=== PATIENT | female | born 1990 | race Caucasian/White ===

== ENCOUNTER 2021-06-13 07:54 | Outpatient (CLI) | payer BC ==
[2021-06-13 23:15] LABS: SARS-CoV-2 PCR by NAA Not Detected (NotDetected)
== END 2021-06-13 07:55 | disposition home or self-care (01) ==
LOC: CSHLAB 07:54
PROVIDERS: ATTEND Student in an Organized Health Care Education/Training Program
DX: Z01.812 Encounter for preprocedural laboratory examination (principal); Z20.822 Contact with and (suspected) exposure to COVID-19
CPT/HCPCS: U0003; U0005

== ENCOUNTER 2021-06-14 23:42 | Inpatient (IN) | payer BC ==
[2021-06-15 00:12] VITALS: BMI 26.2
[2021-06-15] MEDS ORDERED: Promethazine HCl 25 MG/ML VIAL IM PRN ×2 (01:09→03:00)
[2021-06-15] MEDS ORDERED: Misoprostol 200 MCG TAB PR PRN (01:09)
[2021-06-15] MEDS ORDERED: Ibuprofen 800 MG TAB PO PRN (01:09)
[2021-06-15] MEDS ORDERED: hydrALAZINE 20 MG/ML VIAL SLOW IVP PRN ×2 (01:09→08:04)
[2021-06-15] MEDS ORDERED: Butorphanol Tartrate 1 MG/ML VIAL SLOW IVP PRN (01:09)
[2021-06-15] MEDS ORDERED: Acetaminophen 500 MG TAB PO PRN (01:09)
[2021-06-15] MEDS ORDERED: Ondansetron PF 4 MG/2 ML Vial IVP PRN ×3 (01:09→08:04)
[2021-06-15] MEDS ORDERED: Lidocaine 1% (PF) 30 ML VIAL SC PRN (01:09)
[2021-06-15] MEDS ORDERED: NS w/ Oxytocin 30 units 500 ML IV SCH ×2 (01:15→08:04)
[2021-06-15] MEDS ORDERED: Lactated Ringer's 1,000 ML IV SCH (01:15)
[2021-06-15 01:22] LABS: Hemoglobin 12.1 g/dL (12.0-15.5); Mean Corpuscular HGB CONC 33.6 g/dL (32.0-36.0); Mean Corpuscular Volume 89.3 fl (81.6-98.3); Platelet Count 191 10x3/uL (150-450); RBC Distribution Width 14.8 % (11.5-14.5); Red Blood Cell (RBC) Count 4.03 10x6/uL (3.90-5.03); White Blood Cell (WBC) Count 11.5 10x3/uL (3.5-10.5)
[2021-06-15] MEDS ORDERED: Fentanyl 2 mcg/Bup 0.1% Cadd 100 ML ONE (01:45)
[2021-06-15 01:52] LABS: Syphilis Antibody Nonreactive (Nonreactive); Syphilis Antibody Index 0.04 S/CO (<1.00 Non-Reactive)
[2021-06-15 01:53] LABS: Hep B Surf Ag Non-Reactive S/CO (NonReactive)
[2021-06-15] MEDS ORDERED: Acetaminophen 325 MG TAB PO PRN (03:00)
[2021-06-15] MEDS ORDERED: Naloxone HCl 0.4 mg/ml Vial IVP PRN ×2 (03:00)
[2021-06-15] MEDS ORDERED: Fentanyl 2 mcg/Bupivacaine 0.1% Cassette 100 ML EPIDURAL SCH (03:00)
[2021-06-15] MEDS ORDERED: Hydrocerin (Eucerin) Cream 120 gm Jar TOP PRN (03:00)
[2021-06-15] MEDS ORDERED: ePHEDrine Sulfate 50 MG/10 ML VIAL SLOW IVP PRN (03:00)
[2021-06-15] MEDS ORDERED: diphenhydrAMINE 50 MG/ML VIAL IVP PRN (03:00)
[2021-06-15] MEDS ORDERED: Communication Order-Pharmacy FS SCH (03:00)
[2021-06-15] MEDS ORDERED: Lactated Ringer's 500 ML IV PRN (03:00)
[2021-06-15] MEDS ORDERED: Bupivacaine 0.25% HCL 30 ML VIAL ONE (08:00)
[2021-06-15] MEDS ORDERED: ePHEDrine Sulfate 50 MG/10 ML VIAL ONE (08:00)
[2021-06-15] MEDS ORDERED: Benzocaine-Menthol 82.5 ML CAN TOP PRN (08:04)
[2021-06-15] MEDS ORDERED: Boostrix 0.5 ML (Tdap) VIAL IM ONE (08:04)
[2021-06-15] MEDS ORDERED: diphenhydrAMINE 25 MG CAP PO PRN (08:04)
[2021-06-15] MEDS ORDERED: Misoprostol 200 MCG TAB VAG PRN (08:04)
[2021-06-15] MEDS ORDERED: Milk Of Magnesia 30 ML UDCUP PO PRN (08:04)
[2021-06-15] MEDS ORDERED: Lanolin Ointment 7 GM TUBE TOP PRN (08:04)
[2021-06-15] MEDS ORDERED: Bisacodyl 10 MG SUPP PR PRN (08:04)
[2021-06-15] MEDS ORDERED: Preparation H Ointment 28 GM TUBE PR PRN (08:04)
[2021-06-15] MEDS: Prenatal Vitamin 1 TAB PO SCH (09:33)
[2021-06-15] MEDS: Docusate Calcium (SURFAK) 240 MG CAP PO SCH ×2 (09:33→21:16)
[2021-06-15] MEDS: Ferrous Sulfate 325 MG TAB PO SCH ×2 (14:07→14:43)
[2021-06-15] MEDS: Ibuprofen 800 MG TAB PO SCH ×2 (14:09→21:17)
[2021-06-16] MEDS: Ibuprofen 800 MG TAB PO SCH ×3 (04:55→21:22)
[2021-06-16] MEDS: Ferrous Sulfate 325 MG TAB PO SCH ×2 (07:47→17:05)
[2021-06-16] MEDS: Docusate Calcium (SURFAK) 240 MG CAP PO SCH ×2 (08:45→21:23)
[2021-06-16] MEDS: Prenatal Vitamin 1 TAB PO SCH (08:45)
[2021-06-16 09:05] LABS: Hemoglobin 10.8 g/dL (12.0-15.5); Mean Corpuscular HGB CONC 33.3 g/dL (32.0-36.0); Mean Corpuscular Hemoglobin 30.1 pg (27.0-33.0); Mean Corpuscular Volume 90.3 fl (81.6-98.3); Mean Platelet Volume 12.7 fl (7.4-10.4); Platelet Count 166 10x3/uL (150-450); RBC Distribution Width 15.1 % (11.5-14.5); Red Blood Cell (RBC) Count 3.59 10x6/uL (3.90-5.03); White Blood Cell (WBC) Count 11.9 10x3/uL (3.5-10.5)
[2021-06-17] MEDS: Ibuprofen 800 MG TAB PO SCH (05:05)
[2021-06-17] MEDS: Ferrous Sulfate 325 MG TAB PO SCH (07:35)
[2021-06-17 07:52] VITALS: BP 108/77; TEMP 97.8
[2021-06-17] MEDS: Docusate Calcium (SURFAK) 240 MG CAP PO SCH (09:44)
[2021-06-17] MEDS: Prenatal Vitamin 1 TAB PO SCH (09:45)
== END 2021-06-17 13:25 | disposition home or self-care (01) | DRG 806 ==
LOC: CSHLD/OP 23:42 → CSHLD 06-15 01:06 → CSHPP 06-15 09:14
PROVIDERS: ADMIT Student in an Organized Health Care Education/Training Program; ATTEND Student in an Organized Health Care Education/Training Program
PROC: 10E0XZZ Delivery of Products of Conception, External Approach (ICD-10-PCS; principal; 2021-06-15)
PROC: 0KQM0ZZ Repair Perineum Muscle, Open Approach (ICD-10-PCS; 2021-06-15)
DX: O77.0 Labor and delivery complicated by meconium in amniotic fluid (principal); D62 Acute posthemorrhagic anemia; Z37.0 Single live birth; Z3A.40 40 weeks gestation of pregnancy; O70.1 Second degree perineal laceration during delivery; O90.81 Anemia of the puerperium
CPT/HCPCS: 36415; 51702; 85027; 86780; 86850; 86900; 86901; 87340; 99285; J2590; S0020; U0003; U0005